=== PATIENT | male | born 1985 | race African-American/Black ===

== ENCOUNTER 2018-03-14 21:14 | Emergency (ER) | payer MEDICAID ==
[~2018-03-14] VITALS: Ht 180.3 cm; Wt 95.5 kg
[2018-03-14] MEDS ORDERED: AZITHROMYCIN 500 MG TABLET PO ONE (22:00)
[2018-03-14] MEDS ORDERED: ACETAMINOPHEN 500 MG TABLET PO ONE (22:00)
[2018-03-14] MEDS ORDERED: CEFTRIAXONE 250 MG IM ONE (22:00)
[2018-03-14] MEDS ORDERED: LIDOCAINE-MPF 1%, 2ML ONE (22:01)
[2018-03-14] MEDS ORDERED: AZITHROMYCIN 500 MG TABLET ONE (22:01)
[2018-03-14] MEDS ORDERED: CEFTRIAXONE 250 MG ONE (22:02)
[2018-03-14 22:30] LABS: MICROSCOPIC INDICATED
[2018-03-14] MEDS ORDERED: ACETAMINOPHEN 500 MG TABLET ONE (22:30)
[2018-03-14 22:31] LABS: CULTURE INDICATED? YES
[2018-03-14 22:32] VITALS: BP 113/69
== END 2018-03-14 22:58 | disposition home or self-care (01) ==
LOC: ED 22:44
DX: N39.0 Urinary tract infection, site not specified (principal); F17.200 Nicotine dependence, unspecified, uncomplicated
CPT/HCPCS: 81001; 87086; 87491; 87591; 96372; 99284; J0696; 87077